=== PATIENT | female | born 1995 | race Caucasian/White ===

== ENCOUNTER 2017-07-05 20:13 | Emergency (ER) | payer SELFPAY ==
[2017-07-05] MEDS ORDERED: Ondansetron 4 MG/2 ML SDV IVPUSH ONE (21:53)
[2017-07-05] MEDS ORDERED: Famotidine 20 MG/2 ML SDV IVPUSH ONE (21:53)
[2017-07-05] MEDS ORDERED: Sodium Chloride 0.9% 10 ML Syringe FLUSH PRN (21:53)
--- NOTE | 2017-07-05 22:05 | EDM.PDOC ---
ED HPI GENERAL MEDICAL PROBLEM - General Chief Complaint: Abdominal Pain Stated Complaint: STOMACH PAIN Time Seen by Provider: 07/05/17 21:30 Source of Information: Reports: Patient History Limitations: Reports: No Limitations - History of Present Illness INITIAL COMMENTS - FREE TEXT/NARRATIVE: 22-year-old female presents for evaluation and treatment of epigastric pain. Patient reports she's been experiencing epigastric pain on and off for the last 3 months since she gave to her baby girl. She states the pain is located at the epigastric area and radiates into her back in between her shoulder blades. She also reports some radiation into her chest on occasion. Reports associated symptoms of nausea. No vomiting or diarrhea. Patient reports the pain became significant around 1500 tonight. She states that it was a constant pain and rates the pain as 8 out of 10. Has since been improveing. Last intake was around 1300, she had some pizza rolls. No previous surgeries to abdomen. Patient is otherwise healthy with no known medical conditions. Duration: Week(s): (12), Getting Worse Location: Reports: Abdomen Epigastric Pain Score (Numeric/FACES): 8 - Related Data Allergies Allergy/AdvReac Type Severity Reaction Status Date / Time No Known Allergies Allergy Verified 07/05/17 20:18 Home Meds: Home Meds Acetaminophen/oxyCODONE [Percocet 325-5 MG] 1 tab PO Q4HR PRN #10 tab 07/05/17 [ Rx] Ibuprofen 1,000 mg PO ONCALL PRN 07/05/17 [History] Ondansetron [Zofran ODT] 4 mg PO Q6H PRN #15 tab.dis 07/05/17 [Rx] Social & Family History - Tobacco Use Smoking Status *Q: Never Smoker Second Hand Smoke Exposure: No - Caffeine Use Caffeine Use: Reports: Soda - Recreational Drug Use Recreational Drug Use: No ED ROS GENERAL - Review of Systems Review Of Systems: See Below Constitutional: Denies: Fever, Chills Cardiovascular: Reports: Chest Pain (occassional) GI/Abdominal: Reports: Abdominal Pain (epigastric with pain into the back and in between the shoulder blades), Nausea. Denies: Vomiting ED EXAM, GI/ABD - Physical Exam Exam: See Below Exam Limited By: No Limitations General Appearance: Alert, WD/WN, No Apparent Distress Ears: Normal External Exam Nose: Normal Inspection Throat/Mouth: Normal Inspection, Normal Lips, Normal Voice, No Airway Compromise Respiratory/Chest: No Respiratory Distress, Lungs Clear, Normal Breath Sounds, Chest Non-Tender Cardiovascular: Normal Peripheral Pulses, Regular Rate, Rhythm, No Murmur GI/Abdominal Exam: Normal Bowel Sounds, Soft, Non-Tender, No Distention, Other ( - apple's sign) Neurological: Alert, Oriented, Normal Cognition Psychiatric: Normal Affect, Normal Mood Skin Exam: Warm, Dry, Normal Color Course - Vital Signs Last Recorded V/S: Last Vital Signs Temp 37.2 C 07/05/17 20:19 Pulse 80 07/05/17 20:19 Resp 16 07/05/17 20:19 BP 108/70 07/05/17 20:19 Pulse Ox 100 07/05/17 20:19 - Orders/Labs/Meds Orders: Active Orders 24 hr Category Date Time Status Peripheral IV Care [RC] . DIRECTED Care 07/05/17 21:53 Active Abdomen Ltd [US] Stat Exams 07/05/17 21:54 Taken Peripheral IV Insertion Adult [OM.PC] Routine Oth 07/05/17 21:53 Ordered Labs: Laboratory Tests 07/05/17 07/05/17 07/05/17 Range/Units 20:24 20:29 20:29 WBC 10.02 (3.98-10.04) K/mm3 RBC 4.66 (3.98-5.22) M/mm3 Hgb 13.5 (11.2-15.7) gm/L Hct 39.3 (34.1-44.9) % MCV 84.3 (79.4-94.8) fl MCH 29.0 (25.6-32.2) pg MCHC 34.4 (32.2-35.5) g/dl RDW Std Deviation 41.5 (36.4-46.3) fL Plt Count 385 H (182-369) K/mm3 MPV 10.4 (9.4-12.3) fl Neutrophils % (Manual) 66 H (40-60) % Band Neutrophils % 0 (0-10) % Lymphocytes % (Manual) 21 (20-40) % Atypical Lymphs % 0 % Monocytes % (Manual) 12 H (2-10) % Eosinophils % (Manual) 1 (0.7-5.8) % Basophils % (Manual) 0 L (0.1-1.2) Platelet Estimate Adequate Plt Morphology Comment Normal RBC Morph Comment Normal Sodium 143 (136-145) mEq/L Potassium 3.7 (3.5-5.1) mEq/L Chloride 105 (98-107) mEq/L Carbon Dioxide 26 (21-32) mEq/L Anion Gap 15.7 H (5-15) BUN 11 (7-18) mg/dL Creatinine 0.7 (0.55-1.02) mg/dL Est Cr Clr Drug Dosing 113.43 mL/min Estimated GFR (MDRD) > 60 (>60) mL/min BUN/Creatinine Ratio 15.7 (14-18) Glucose 118 H (74-106) mg/dL Calcium 8.9 (8.5-10.1) mg/dL Total Bilirubin 0.6 (0.2-1.0) mg/dL GGT 49 (5-55) U/L AST 51 H (15-37) U/L ALT 38 (14-59) U/L Alkaline Phosphatase 138 H (46-116) U/L C-Reactive Protein < 0.2 (<1.0) mg/dL Total Protein 7.9 (6.4-8.2) g/dl Albumin 4.3 (3.4-5.0) g/dl Globulin 3.6 gm/dL Albumin/Globulin Ratio 1.2 (1-2) Lipase 170 (73-393) U/L Meds: Medications Discontinued Medications Generic Name Dose Route Start Last Admin Trade Name Freq PRN Reason Stop Dose Admin Famotidine 20 mg 07/05/17 21:53 07/05/17 22:04 Pepcid IVPUSH 07/05/17 21:54 20 mg ONETIME ONE Administration Ondansetron HCl 4 mg 07/05/17 21:53 07/05/17 22:02 Zofran IVPUSH 07/05/17 21:54 4 mg ONETIME ONE Administration Sodium Chloride 10 ml 07/05/17 21:53 07/05/17 22:04 Saline Flush FLUSH 10 ml ASDIRECTED PRN Administration Keep Vein Open - Radiology Interpretation Free Text/Narrative:: Ultrasound abdomen limited right upper quadrant impression per the read cholelithiasis without sonographic evidence for acute cholecystitis. Gallbladder wall thickness measures 3 mm. No. He cholecystic fluid. Common bile duct measures 5 mm. No stones. No dilation. - Re-Assessments/Exams Free Text/Narrative Re-Assessment/Exam: 07/05/17 23:27 Patient reports the nausea and the pain have improved. Reviewed the labs and ultrasound results with the patient. I will have her follow up with surgery to discuss having a lap Cholecystectomy. No emergent need to do this tonight. I will give her some pain medications and some nausea medications in the meantime. She is instructed to avoid high fatty foods. Educated that the surgeon may want HIDA scan to further evaluate. Discharge instructions as documented. Departure - Departure Time of Disposition: 23:33 Disposition: Home, Self-Care 01 Condition: Fair Clinical Impression: Cholelithiasis - Discharge Information Prescriptions: Acetaminophen/oxyCODONE [Percocet 325-5 MG] 1 tab PO Q4HR PRN #10 tab PRN Reason: Pain Ondansetron [Zofran ODT] 4 mg PO Q6H PRN #15 tab.dis PRN Reason: Nausea Instructions: Cholelithiasis Referrals: PCP,None [Primary Care Provider] - Mark Woods MD [Physician] - Forms: ED Department Discharge Additional Instructions: Follow up with surgery for a consult for a laparoscopic cholecystectomy. Recommend Dr. Woods at the [facility]. Call [phone] schedule with him. Avoid fatty foods as these will cause your gallbladder to contract and cause worsening of your symptoms. Zofran 1 tab sublingual every 6 hours as needed for nausea. [id number] Tylenol or Motrin as needed for pain. Do not take more than 4 g of Tylenol from all sources in 1 day. Do not take more than 3200 mg ibuprofen from all sources in 1 day. Percocet 1 tab every 4-6 hours as needed for severe pain not relieved by Tylenol or Motrin. Do not drive or operate machinery within 12 hours of taking Percocet. Percocet is habit-forming, take as few of these as needed to control your pain. Patient return to the ER if your symptoms change or worsen. nausea. - My Orders Last 24 Hours: My Active Orders 07/05/17 21:53 Peripheral IV Care [RC] . DIRECTED Peripheral IV Insertion Adult [OM.PC] Routine 07/05/17 21:54 Abdomen Ltd [US] Stat - Assessment/Plan Last 24 Hours: My Active Orders 07/05/17 21:53 Peripheral IV Care [RC] . DIRECTED Peripheral IV Insertion Adult [OM.PC] Routine 07/05/17 21:54 Abdomen Ltd [US] Stat
--- NOTE | 2017-07-06 07:48 | US ---
Limited abdominal ultrasound: Multiple real-time images of the upper right abdomen were obtained. Comparison: No previous abdominal imaging. Findings: Liver shows no focal abnormality. Gallbladder contains layering small gallstones. No gallbladder wall thickening or biliary duct dilatation is seen. Right kidney shows no hydronephrosis or mass. Right kidney has a length of 11.2 cm. Inferior vena cava is patent. Portal vein shows normal hepatopedal flow. Visualized portions of the pancreas are within normal limits. Impression: 1. Small layering gallstones within the gallbladder. No gallbladder wall thickening or biliary duct dilatation is seen. 2. Other portions of the right upper quadrant abdominal ultrasound are unremarkable. Diagnostic code #3 Agree with preliminary report issued by [facility] ([facility] preliminary report dictated on 07/06/17, 12:00 a.m. Central Time)
== END 2017-07-05 23:45 | disposition home or self-care (01) ==
LOC: JD.ED 20:13
DX: K80.20 Calculus of gallbladder without cholecystitis without obstruction (principal)
CPT/HCPCS: 36415; 76705; 80053; 82977; 83690; 85025; 86140; 96374; 96375; 99284; J2405; J7050